=== PATIENT | male | born 1955 | race African-American/Black ===

== ENCOUNTER 2018-01-21 06:02 | Emergency (ER) | payer BC, MEDICARE ==
[2018-01-21 06:42] LABS: #Basophils 0.1 thou/uL (0.0-0.2); #Eosinphils 0.2 thou/uL (0.0-0.7); #Lymphocytes 2.7 thou/uL (1.20-3.40); #Monocytes 0.7 thou/uL (0.11-0.59); #Neutrophils 3.1 thou/uL (1.40-6.50); %Basophils 1.1 % (0.0-1.0); %Eosinophils 2.4 % (0.0-10.0); %Lymphocytes 39.6 % (21.0-51.0); %Monocytes 10.2 % (0.0-10.0); %Neutrophils 46.8 % (42.0-75.0); Hemoglobin 15.2 g/dL (14.0-18.0); Mean Corpuscular HGB CONC 34.6 g/dL (32.0-36.0); Mean Corpuscular Hemoglobin 30.1 pg (27.0-31.0); Mean Platelet Volume 9.4 fL (7.4-10.4); Platelet Count 155 thou/uL (130-400); RBC Distribution Width 11.9 % (11.5-14.5); Red Blood Cell (RBC) Count 5.05 mill/uL (4.70-6.10); White Blood Cell (WBC) Count 6.7 thou/uL (4.8-10.8)
[2018-01-21 06:53] LABS: Troponin I Less than 0.010 ng/mL (< 0.028)
[2018-01-21 06:54] LABS: ALT (SGPT) 21 U/L (8-55); AST (SGOT) 20 U/L (5-34); Alkaline Phosphatase 87 U/L (40-150); Anion Gap 13 mmol/L (10-20); BUN (Urea Nitrogen) 9 mg/dL (8.4-25.7); Bilirubin, Total 0.8 mg/dL (0.2-1.2); CK (CPK) 56 U/L (30-200); Calc. Creatinine Clearance 0 mL/min (70-130); Calcium 9.7 mg/dL (7.8-10.44); Carbon Dioxide 28 mmol/L (23-31); Chloride 103 mmol/L (98-107); Estimated GFR-MDRD Greater than 90; Globulin 3.8 g/dL (2.4-3.5); Glucose 239 mg/dL (80-115); Potassium 3.4 mmol/L (3.5-5.1); Protein, Total 7.8 g/dL (5.8-8.1); Sodium 141 mmol/L (136-145)
--- NOTE | 2018-01-21 07:45 | RAD ---
CHEST PA AND LATERAL 2 VIEWS: HISTORY: A 62-year-old male who presents with not feeling well. Extremities are warm and trunk is cold. Rest less. COMPARISON: 09/25/2012. FINDINGS: Minimal linear parenchymal changes in the bases. Heart size is normal. No confluent pneumonia, over t edema, or pleural effusion. IMPRESSION: Mild stable chronic changes. No acute intrathoracic disease. POS: [facility]
== END 2018-01-21 07:10 | disposition home or self-care (01) ==
LOC: SCSER 06:02
DX: F11.23 Opioid dependence with withdrawal (principal); M06.9 Rheumatoid arthritis, unspecified; I10 Essential (primary) hypertension; R73.03 Prediabetes; Z79.899 Other long term (current) drug therapy
CPT/HCPCS: 36415; 71046; 80053; 82550; 83735; 84443; 84484; 85025; 87804; 93005

== ENCOUNTER 2019-02-01 08:57 | Outpatient (CLI) | payer MEDICARE, BC ==
--- NOTE | 2019-02-01 10:54 | MRI ---
MRI Lumbar Spine WO Con History: M 46.26. Low back pain. Comparison: None. Findings: The aortic contour is nonaneurysmal. No retroperitoneal periaortic adenopathy. No hydroneph rosis. Paraspinal musculature is normal. No marrow infiltrative process. The conus medullaris terminates near the mid L1 vertebral body. Levels are as follows: L1-2: Right-sided paracentral and lateral recess disc extrusion extending craniad along the posterior margin of the vertebral body. This measures 2.1 cm in craniocaudal dimension with a transverse dimension of 7 mm in AP dimension of 5 mm. Some mild mass effect upon the thecal sac. The spinal suhail l measures approximate 6 mm. Minimal right-sided neural foraminal narrowing. L2-3: Low-grade disc space height loss. Small circumferential disc osteophyte complex greatest centra lly. There is mild flattening of the thecal sac with the spinal canal measuring approximately 7 mm. Mild bilateral neural foraminal narrowing. L3-4: Mild disc space height loss with large circumferential disc osteophyte complex greatest in the central zone. Mild effacement of the thecal sac. The spinal canal measuring 8 mm. Moderate bilateral neural foraminal narrowing with abutment of both exiting nerve roots. L4-5: Moderate degenerative disc space height loss. Large circumferential disc bulge greatest in the left lateral recess and subforaminal zone. Moderate to severe right and severe left neural foraminal narrowing with abutment of both exiting and traversing nerve roots. L5-S1: Large right central and paracentral disc extrusion extending craniad. This extrusion measures 1.4 cm in transverse by AP dimension of 1.1 cm in a craniocaudal dimension of 2.3 cm. There is abutment of the right L4-L5 and S1 nerve roots. Impression: Multilevel spondylosis with disc extrusions as described with nerve root abutment.
== END 2019-02-01 08:58 | disposition home or self-care (01) ==
LOC: SCSMRI 08:57
PROVIDERS: ATTEND Orthopaedic Surgery
DX: M47.26 Other spondylosis with radiculopathy, lumbar region (principal); M51.16 Intervertebral disc disorders with radiculopathy, lumbar region
CPT/HCPCS: 72148

== ENCOUNTER 2023-07-24 13:48 | Outpatient (CLI) | payer MEDICARE | END 2023-07-24 13:49 | disposition home or self-care (01) | LOC: RAD 13:48 | PROVIDERS: ATTEND Internal Medicine | DX: R06.00 Dyspnea, unspecified (principal); J90 Pleural effusion, not elsewhere classified | CPT/HCPCS: 71046 ==

== ENCOUNTER 2023-08-12 23:18 | Inpatient (IN) | payer MEDICARE ==
[2023-08-13] VITALS: BMI 25.1
[2023-08-13] MEDS: Labetalol HCl 100 MG/20 ML VIAL SLOW IVP SCH (02:02)
[2023-08-13] MEDS: Melatonin 3 MG TAB PO SCH (02:02)
[2023-08-13] MEDS: HYDROcodone/Acetaminophen 7.5/325 mg Tablet PO PRN (02:02)
[2023-08-13 02:09] LABS: #Basophils 0.03 10x3/uL (0.0-0.2); %Basophils 0.4 % (0.0-1.0); %Lymphocytes 25.1 % (21.0-51.0); %Monocytes 11.2 % (0.0-10.0); %Neutrophils 62.2 % (42.0-75.0); Hematocrit 35.3 % (42.0-52.0); Hemoglobin 11.7 g/dL (14.0-18.0); Mean Corpuscular HGB CONC 33.1 g/dL (32.0-36.0); Mean Corpuscular Hemoglobin 30.5 pg (27.0-31.0); Mean Corpuscular Volume 92.2 fL (78.0-98.0); Mean Platelet Volume 10.1 fL (7.4-10.4); Platelet Count 138 10x3/uL (130-400); RBC Distribution Width 15.8 % (11.5-14.5); Red Blood Cell (RBC) Count 3.83 mill/uL (4.70-6.10)
[2023-08-13 02:51] LABS: Troponin I 0.041 ng/mL (< 0.028)
[2023-08-13 02:57] LABS: A1c 92.77 g/dL; Hb (HGBA1c) 1888.4973 umol/L; Hemoglobin A1c 6.6 % (4.0-6.0)
[2023-08-13 03:01] LABS: Anion Gap 19 mmol/L (10-20); BUN (Urea Nitrogen) 13 mg/dL (8.4-25.7); Calc. Creatinine Clearance 58 mL/min (70-130); Calcium 8.9 mg/dL (7.8-10.44); Carbon Dioxide 20 mmol/L (23-31); Chloride 108 mmol/L (98-107); Estimated GFR 61; Glucose 127 mg/dL (80-115); Potassium 3.7 mmol/L (3.5-5.1); Sodium 143 mmol/L (136-145)
[2023-08-13] MEDS: Furosemide 20 MG (2 mL) VIAL SLOW IVP SCH (06:26)
[2023-08-13 06:48] LABS: Troponin I 0.055 ng/mL (< 0.028)
[2023-08-13] MEDS ORDERED: Ondansetron PF 4 MG/2 ML Vial IVP PRN (08:18)
[2023-08-13] MEDS ORDERED: Acetaminophen 325 MG TAB PO PRN (08:18)
[2023-08-13] MEDS: Empagliflozin 10 MG TAB PO SCH (09:28)
[2023-08-13] MEDS: Heparin 5,000 UNITS/ML VIAL SC SCH (09:28)
[2023-08-13] MEDS: Famotidine 20 MG TAB PO SCH (09:28)
[2023-08-13] MEDS: Spironolactone 25 MG TAB PO SCH (09:29)
[2023-08-14 05:31] LABS: Anion Gap 13 mmol/L (10-20); BUN (Urea Nitrogen) 16 mg/dL (8.4-25.7); Calc. Creatinine Clearance 62 mL/min (70-130); Calcium 8.8 mg/dL (7.8-10.44); Carbon Dioxide 23 mmol/L (23-31); Chloride 106 mmol/L (98-107); Estimated GFR 65; Glucose 98 mg/dL (80-115); Magnesium 1.9 mg/dL (1.6-2.6); Potassium 3.1 mmol/L (3.5-5.1); Sodium 139 mmol/L (136-145)
[2023-08-14] MEDS ORDERED: Milrinone 20 MG in Sodium Chloride 0.9% 100 ML IVPB SCH (08:00)
[2023-08-14 09:21] VITALS: BP 148/93; TEMP 97.2
[2023-08-14] MEDS: Potassium Chloride 20 MEQ TAB PO SCH (09:33)
[2023-08-14] MEDS ORDERED: Potassium Chloride 20 MEQ TAB PO SCH (09:40)
[2023-08-14] MEDS ORDERED: Potassium Bicarbonate/Cit Ac 20 MEQ TAB PO SCH (12:00)
[2023-08-15] MEDS ORDERED: Furosemide 40 MG TAB PO SCH (07:30)
[2023-08-15] MEDS ORDERED: Potassium Chloride 20 MEQ TAB PO SCH (08:00)
== END 2023-08-14 12:03 | disposition home or self-care (01) | DRG 280 ==
LOC: 2SW 23:35 → OBSVTOIN 08-13 12:46
PROVIDERS: ADMIT Internal Medicine; ATTEND Internal Medicine
DX: I11.0 Hypertensive heart disease with heart failure (principal); I50.33 Acute on chronic diastolic (congestive) heart failure; I21.A1 Myocardial infarction type 2; N17.9 Acute kidney failure, unspecified; Z79.899 Other long term (current) drug therapy; E78.5 Hyperlipidemia, unspecified; Z98.890 Other specified postprocedural states; E87.6 Hypokalemia; E11.9 Type 2 diabetes mellitus without complications; R55 Syncope and collapse
CPT/HCPCS: 36415; 36416; 70450; 71045; 71275; 80048; 80053; 80307; 81001; 83036; 83735; 83880; 84484; 85025; 85610; 85730; 93005; 93010; 93798; J1644; J1940